=== PATIENT | female | born 1960 | race Caucasian/White ===

== ENCOUNTER → 2021-02-19 | Outpatient (CLI) | payer BC ==
--- NOTE | 2021-02-19 17:17 | REPVR ---
PROCEDURE INFORMATION: Exam: MR Cervical Spine Without Contrast Exam date and time: 02/19/2021 4:17 PM Age: 60 years old Clinical indication: Neck pain; Additional info: Cervicalgia R/O stenosis TECHNIQUE: Imaging protocol: Multiplanar magnetic resonance images of the cervical spine without contrast. COMPARISON: No relevant prior studies available. FINDINGS: Vertebrae: 2 mm of degenerative retrolisthesis of C3 on C4 and C6 on C7. 3 mm of grade 1 degenerative anterolisthesis of C4 on C5. No acute fracture seen. Spinal cord: Areas of linear high signal seen on the T2 weighted imaging in the posterior cord at the C5 and C6 levels probably representing myelomalacia. Comparison with prior studies would be helpful to document stability. Recent cord myelopathy is thought to be less likely. Prior ACDF at C5-C6 with solid osseous bridging across the disc space. Disc height loss and spondylosis is marked from C6-C7 through T2-3. Mild posterior disc height loss with endplate osteophytic ridging at C3-C4. Endplate inflammation at C6-C7, T1-T2 and T2-3 is likely degenerative. C2-C3: Mild ligamentum flavum buckling. The central spinal canal remains patent. Right uncovertebral and in particular severe facet arthropathy causing severe right neural foraminal stenosis. C3-C4: Retrolisthesis, disc osteophyte complex and ligamentum flavum buckling causing mild central spinal canal stenosis. Uncovertebral and facet arthropathy causing severe right and moderate left neural foraminal stenoses. C4-C5: Anterolisthesis. Diffuse disc bulge and ligamentum flavum buckling. A 2-3 mm component of central disc protrusion indenting cervical cord. Central spinal canal stenosis is moderate. Uncovertebral and facet arthropathy causing severe right and mild left neural foraminal stenoses. C5-C6: Prior ACDF. Central osteophytic ridging indents ventral cervical cord without contributing to central spinal canal stenosis. No significant foraminal stenoses. C6-C7: Slight retrolisthesis. Marked diffuse disc osteophyte complex and ligamentum flavum buckling. A focal component of soft central disc protrusion measures approximately 2-3 mm in AP dimension indenting ventral cervical cord. Central spinal canal stenosis is severe. Uncovertebral and facet arthropathy causing moderate to severe bilateral neural foraminal stenoses. C7-T1: Left eccentric disc osteophyte complex and slight posterior ligamentum flavum buckling. No significant central spinal canal stenosis. Uncovertebral and facet arthropathy causing severe left and moderate to severe right neural foraminal stenoses. T1-T2: Disc osteophyte complex does not contribute to significant central spinal canal stenosis. Foraminal disc osteophyte and facet arthropathy causing severe bilateral neural foraminal stenoses. T2-T3: Evaluated on the sagittal imaging. Disc osteophyte complex does not contribute to significant central spinal canal stenosis. Foraminal disc osteophyte and facet arthropathy causing severe right and moderate left neural foraminal stenoses. Soft tissues: Unremarkable. Thyroid: The thyroid gland is enlarged. There is a 1.2 cm right thyroid nodule. Vertebral arteries: Expected flow voids in the vertebral arteries. IMPRESSION: 1. Images are mildly motion degraded. 2. Severe right neural foraminal stenosis at C2-C3. 3. Mild central spinal canal stenosis at C3-C4. Severe right and moderate left neural foraminal stenoses. 4. Moderate central spinal canal stenosis at C4-C5. Severe right neural foraminal stenosis. 5. Severe central spinal canal stenosis at C6-C7. Moderate to severe bilateral neural foraminal stenoses. 6. Severe left and moderate to severe right neural foraminal stenoses at C7-T1. COMMENTS: Consistent with the [employer]'s Incidental Findings Committee white paper (J [employer]iol 2015): In patients aged 35 years and older with an incidental thyroid nodule equal to or greater than 1.[address], MRI or extrathyroidal US, further evaluation with dedicated thyroid US is recommended for patients with normal life expectancy and without comorbidities. For smaller nodules without suspicious features, no further evaluation or follow up is recommended. Electronically signed by: Kaitlynn Montague On 02/19/2021 17:16:59 PM
== END ==
LOC: M RAD 14:52
PROVIDERS: ATTEND Orthopaedic Surgery
DX: M54.2 Cervicalgia (principal)